=== PATIENT | male | born 1965 | race Caucasian/White ===

== ENCOUNTER 2019-05-12 12:30 | Outpatient (CLI) | payer OTHER, SELFPAY ==
--- NOTE | ~2019-05-12 | MR_ITS ---
EXAMINATION: MR lumbar spine wo con EXAM DATE: 05/12/2019 13:34 INDICATION: Low back pain. TECHNIQUE: Multi-sequential, multiplanar MR images of the lumbar spine were obtained without contrast . Sagittal T1, T2, T2 fat saturation images. Axial T2 weighted images. There is no prior study for comparison. FINDINGS: There is moderate disc disease from T12 through L3, mild to moderate at L3-4 and L5-S1. The re is 3 mm retrolisthesis L2 on L3, 2 mm retrolisthesis L3 on L4 and 2 mm anterolisthesis L5 on S1. T he conus medullaris terminates at the L1/2 level and has normal signal intensity and morphology. The re are no suspicious marrow signal abnormalities. Paraspinal soft tissue is unremarkable. Right renal fluid signal intensity lesion measuring about 3 cm. Level by level evaluation: T12-L1: There is a mild diffuse disc bulge. Facet arthropathy: None. Neural foraminal stenosis: No stenosis. Central canal stenosis: Mild. L1-L2: There is a mild diffuse disc bulge. Facet arthropathy: None. Neural foraminal stenosis: No stenosis. Central canal stenosis: Minimal. L2-L3: There is a moderate diffuse disc bulge. Facet arthropathy: Mild. Neural foraminal stenosis: Mild bilateral. Central canal stenosis: Mild to moderate. Some nerve root crowding. L3-L4: There is a mild to moderate diffuse disc bulge. Facet arthropathy: Mild. Neural foraminal stenosis: Mild bilateral. Central canal stenosis: Mild. L4-L5: There is a mild diffuse disc bulge. Facet arthropathy: Mild. Neural foraminal stenosis: Mild bilateral. Central canal stenosis: Minimal. L5-S1: There is a mild to moderate diffuse disc bulge. Facet arthropathy: Mild. Neural foraminal stenosis: Mild to moderate bilateral. Central canal stenosis: Mild. IMPRESSION: Moderate lumbar disc disease, mild arthropathy as detailed above. Reviewed, dictated and finalized at location A. UCTION SERVICE MANAGER
== END 2019-05-12 12:31 | disposition home or self-care (01) ==
LOC: ANHIMG 12:41
PROVIDERS: Visit Provider Physical Medicine & Rehabilitation Pain Medicine
DX: M51.36 Other intervertebral disc degeneration, lumbar region (principal)
CPT/HCPCS: 72148

== ENCOUNTER 2020-05-18 15:51 | Outpatient (CLI) | payer OTHER, SELFPAY ==
--- NOTE | ~2020-05-18 | MR_ITS ---
EXAMINATION: MR lumbar spine wo con DATE: 05/18/2020 16:37 INDICATION: Chronic low back pain. Gross motor weakness. TECHNIQUE: Magnetic resonance imaging (MRI) of the lumbar spine was performed without intravenous con trast. Sequences included sagittal T2-weighted FSE, sagittal T2-weighted FS FSE, sagittal T1-weighted FSE, and axial T2-weighted FSE. COMPARISON: Lumbar spine MRI 05/12/2019 FINDINGS: There is 3 degrees levocurvature of lumbar spine. There is 3 mm retrolisthesis of L2 on L3. There is mild chronic anterior wedging of T12-L2 vertebral bodies. There are Schmorl's nodes from T1 1-T12 through L2-L3. There is mildly decreased disc height at L1-L2, moderately decreased disc height at L2-L3, and mildly decreased disc height at L3-L4 and L5-S1. The distal spinal cord signal intensi ty is normal. The conus medullaris is at L1. There is a 3.4 cm cyst in right kidney. The following di sc levels are specifically discussed: L1-L2: The disc is bulging. There is no facet joint osteoarthritis. There is mild left neural foramin al stenosis. There is mild central canal stenosis. L2-L3: The disc is bulging and has an annular fissure. There is mild right facet joint osteoarthritis . There is mild bilateral neural foraminal stenosis. There is mild central canal stenosis. L3-L4: The disc is bulging and has an annular fissure. There is mild bilateral facet joint osteoarthr itis. There is mild bilateral neural foraminal stenosis. There is mild central canal stenosis. L4-L5: The disc does not extend beyond the endplate margin. There is mild bilateral facet joint osteo arthritis. There is no neural foraminal stenosis. There is no central canal stenosis. L5-S1: The disc is bulging. There is mild bilateral facet joint osteoarthritis. There is mild bilater al neural foraminal stenosis. There is mild central canal stenosis. IMPRESSION: 1. Moderate lumbar spondylosis, stable from 05/12/2019. Reviewed, dictated and finalized at location A. LFISH MANAGER
== END 2020-05-18 15:52 | disposition home or self-care (01) ==
PROVIDERS: Visit Provider Physical Medicine & Rehabilitation Pain Medicine
DX: M47.815 Spondylosis without myelopathy or radiculopathy, thoracolumbar region (principal); R53.1 Weakness; M51.45 Schmorl's nodes, thoracolumbar region; M48.05 Spinal stenosis, thoracolumbar region
CPT/HCPCS: 72148

== ENCOUNTER → 2020-08-05 04:18 | Outpatient (CLI) | payer OTHER, SELFPAY ==
[2020-08-05 19:36] LABS: SARS-CoV-2 RNA PCR Negative
== END ==
PROVIDERS: Visit Provider Physical Medicine & Rehabilitation Pain Medicine
DX: R68.89 Other general symptoms and signs (principal); Z20.822 Contact with and (suspected) exposure to COVID-19
CPT/HCPCS: C9803; U0003; U0005

== ENCOUNTER 2020-08-08 09:57 | Outpatient (CLI) | payer OTHER, SELFPAY ==
[2020-08-03 16:02] VITALS: BMI 20.5
--- NOTE | ~2020-08-08 | XR_ITS ---
EXAMINATION: XR myelogram spine lumbosacral EXAM DATE: 08/08/2020 11:32 INDICATION: Back pain, radiculopathy. TECHNIQUE: Patient's prior MRI examination from April was reviewed. Informed consent was obtained from the patient for doing intrathecal injection of contrast, myelogram to be performed by Dr. Nithin Jain, radiologist. I discussed benefits and risks including bleeding, infection, backache, headache and seizure. Alternatives also discussed. The DAP for this procedure was 0.35 Gycm2. Pulsed dose red uction fluoroscopy was used with fluoroscopic time of 0.2. A total of 22 images obtained for the exam . Time out procedure was performed. Regulatory And Compliance Technician radiograph was obtained. An entry site was chosen at the L4 -5 level. A right paracentral approach was used. Standard sterile prep was done with ChloraPrep. E ntry site was infiltrated with 3 cc 1% lidocaine. A 3.5 22G spinal needle was then inserted into th e spinal canal. 15 milliliters Omnipaque 180 were then injected into the thecal sac. Frontal, lateral and oblique fluoroscopic images lumbar spine were then acquired. The patient was th en transferred to CT scan for postcontrast imaging. Following this, patient was placed in postopera tive area for 2 hours observation prior to being discharged. There were no immediate complications. FINDINGS: Patient has 12 rib-bearing lumbar vertebral bodies. There is no myelographic block. Disc b ulges noted at L2-3 and L3-4 levels. IMPRESSION: Intrathecal placement of contrast for subsequent CT myelogram. Reviewed, dictated and finalized at location A.
--- NOTE | ~2020-08-08 | CT_ITS ---
EXAMINATION: CT lumbar spine w con EXAM DATE: 08/08/2020 11:29 INDICATION: Radiculopathy . Low back pain. TECHNIQUE: Spiral CT of the lumbar spine was performed with intrathecal injection of 15 mL Omnipaque 180 solution. Axial, coronal and sagittal images lumbar spine were reviewed. The dose-length produc t (DLP) for this examination was 419 mGy-cm. Patient was scanned a 2nd time after review of the 1st s can demonstrated most contrast layering posteriorly. The exposure was tailored according to patient s ize (auto mA exposure control), and iterative reconstruction (ASIR) was used as additional dose reduc tion technique. There is no prior study for comparison. FINDINGS: There is good intrathecal opacification. There is also some subdural contrast at the lumbos acral junction. There is no nerve root clumping. Conus terminates at the L1-2 level. There is 3 mm re trolisthesis L2 on L3, 2 mm retrolisthesis L3 on L4. Vertebral body heights relatively well-maintaine d. Moderate loss of the disc height from T12 through L3 levels, mild to moderate at L3-4 and L5-S1. M ild aortic arterial sclerosis. There are no acute fractures identified. No spondylolysis. Level by level evaluation: T12-L1: There is a minimal diffuse disc bulge. Facet arthropathy: None. Neural foraminal stenosis: No stenosis. Central canal stenosis: No stenosis. L1-L2: There is a mild diffuse disc bulge. Facet arthropathy: None. Neural foraminal stenosis: No stenosis. Central canal stenosis: No stenosis. L2-L3: There is a moderate diffuse disc bulge. Facet arthropathy: Mild. Neural foraminal stenosis: Mild bilateral. Central canal stenosis: Mild to moderate. L3-L4: There is a mild to moderate diffuse disc bulge. Facet arthropathy: Mild. Neural foraminal stenosis: Mild bilateral. Central canal stenosis: Mild. L4-L5: There is a minimal diffuse disc bulge. Facet arthropathy: Mild to moderate. Neural foraminal stenosis: Mild bilateral. Central canal stenosis: No stenosis. L5-S1: There is a mild diffuse disc bulge. Facet arthropathy: Mild to moderate. Neural foraminal stenosis: Mild bilateral. Central canal stenosis: No stenosis. Correlating with prior MRI examination, does not appear to be any significant interval change. IMPRESSION: 1. L2-3 grade 1 retrolisthesis with moderate disc bulge. 2. Less spondylosis other levels unchanged. Reviewed, dictated and finalized at location A.
[2020-08-08 10:27] LABS: Mean Platelet Volume 8.9 fl (7.4-10.4); Platelet Count Result 294 k/mm3 (150-375)
[2020-08-08 10:35] LABS: INR 0.9
[2020-08-08 11:30] VITALS: BP 122/80; PULSE 79; RESP 20; O2SAT 97
[2020-08-08 11:32] VITALS: BP 128/70; PULSE 64; RESP 16; O2SAT 96
[2020-08-08 11:38] VITALS: BP 127/78; PULSE 79; RESP 18; O2SAT 96
[2020-08-08 12:00] VITALS: BP 112/76; PULSE 79; RESP 20
[2020-08-08 13:00] VITALS: BP 114/81; PULSE 76; RESP 20
[2020-08-08 13:20] VITALS: BP 110/80; PULSE 76; RESP 20
== END 2020-08-08 09:58 | disposition home or self-care (01) ==
PROVIDERS: Radiology Diagnostic Radiology; Visit Provider Physical Medicine & Rehabilitation Pain Medicine
DX: M54.16 Radiculopathy, lumbar region (principal); M47.816 Spondylosis without myelopathy or radiculopathy, lumbar region
CPT/HCPCS: 36415; 62304; 72132; 85049; 85610; Q9965

== ENCOUNTER 2020-08-12 08:18 | Emergency (ER) | payer OTHER, SELFPAY ==
--- NOTE | ~2020-08-12 | XR_ITS ---
EXAMINATION: XR injection blood patch w img EXAM DATE: 08/12/2020 11:02 INDICATION: Spinal headache. Myelogram performed on 08/08/2020. TECHNIQUE: Informed consent was obtained from the patient for doing this blood patch. I discussed be nefits and risks including bleeding, infection, backache and headache. Alternatives also discussed. R adiologist Nithin Jain M.D. performed the procedure with date of pulsed dose reduction fluoroscopy, w ith fluoroscopic time of 0.1. The DAP for this procedure was 11.8 Gycm2. A total of 3 images obtain ed for the exam. A timeout procedure was performed. Vascular access nurse Merlene was present to start a new IV under pasquale rile technique. The back was prepped in standard sterile fashion with Betadine. L4-5 entry site was chosen under fluoroscopic guidance and infiltrated with 3 cc 1% lidocaine. The thecal sac was then a ccessed from a right paracentral approach using a 3.5 noncutting epidural needle. This is the same l ocation that the myelogram was performed out. Loss of resistance technique was utilized. Additionally , a lateral projection confirmed expected position of the epidural needle tip. Merlene then withdrew 12 mL of blood from patient's sterile IV site. I injected 10 mL into the epidural space. At no point dur ing this procedure did CSF flow from the needle hub. Patient stated he felt well after the procedure, but that he had not tried standing. There were no im mediate complications. IMPRESSION: Status post fluoroscopic guided blood patch. Reviewed, dictated and finalized at location A.
[2020-08-12 08:22] VITALS: BP 152/83; PULSE 67; RESP 14; TEMP 36.1; O2SAT 98
[2020-08-12] MEDS: SODIUM CHLORIDE 0.9% IV 1,000 ML 500 ML IV CONT (08:53)
[2020-08-12 08:54] LABS: Basophils Absolute Auto 0.1 K/mm3 (0.0-0.1); Eosinophils Absolute Auto 0.1 K/mm3 (0-0.3); Eosinophils Percent Auto 1.8 % (0-4.4); Hematocrit 40.5 % (42.0-52.0); Hemoglobin 13.8 g/dL (14.0-18.0); Immature Granulocyte Absolute 0.01 K/mm3 (0.00-0.031); Immature Granulocyte Percent A 0.2 % (0-0.5); Lymphocytes Absolute Auto 1.91 K/mm3 (0.9-3.2); Lymphocytes Percent Auto 38.7 % (18.3-44.2); Mean Corpuscular HGB Conc 34.1 g/dl (32-36); Mean Corpuscular Hemoglobin 31.6 pg (26-34); Mean Corpuscular Volume 92.7 fl (80-100); Monocytes Absolute Auto 0.7 K/mm3 (0.1-0.6); Monocytes Percent Auto 13.6 % (2.6-8.5); Neutrophils Absolute Auto 2.2 K/mm3 (1.3-6.7); Neutrophils Percent Auto 44.7 % (45.5-73.1); Platelet Count Result 288 k/mm3 (150-375); Red Blood Count 4.37 M/mm3 (4.6-6.20); Red Cell Distribution Width 12.2 % (11.5-14.5); White Blood Count 4.9 K/mm3 (4.5-10.0)
[2020-08-12 09:03] LABS: Anion Gap 7 mmol/L (8-16); Blood Urea Nitrogen 15 mg/dL (9-20); Calcium 9.5 mg/dL (8.4-10.2); Carbon Dioxide 27 mmol/L (22-30); Chloride 106 mmol/L (98-107); Estimated CRCL calculation 78 ml/min; Estimated Glomerular Filt Rate > 60; Glucose 98 mg/dL (75-110); Potassium 4.3 mmol/L (3.4-5.0); Sodium 140 mmol/L (137-145)
[2020-08-12 09:04] LABS: INR 0.9; Prothrombin Time 12.7 Seconds (11.1-14.7)
[2020-08-12 09:50] VITALS: BP 129/79; PULSE 56; RESP 16; O2SAT 95
[2020-08-12 10:50] VITALS: BP 125/80; PULSE 64; RESP 12; O2SAT 97
--- NOTE | 2020-08-12 11:07 | PC.NURSE ---
Pt returned from blood patch procedure. Orders to remain flat for [address] Jain
--- NOTE | 2020-08-12 13:15 | ED.HA ---
HPI - Headache General Chief Complaint: Headache Stated Complaint: migraine Time Seen by Provider: 08/12/20 08:44 Source: patient Mode of arrival: ambulatory Limitations: no limitations History of Present Illness HPI Narrative: 55-year-old with a history of chronic back pain had a myelogram done 4 days ago here with complaints of having headache since last 3 days. Patient states every time he stands up he gets severe headache mostly on the left side. He denies any nausea, vomiting or photophobia. He states that he had no previous history of headaches. MD elicited complaint: headache Pertinent past history: other (Myelogram) Onset (ago): day(s) (4) Onset description: gradually Location: frontal Severity: moderate Quality & Timing: aching Exacerbating factors: sitting/standing Relieving factors: rest Associated symptoms: none Related Data Home Medications Medication Instructions Recorded Confirmed baclofen 5 mg PO HS 06/22/20 08/03/20 gabapentin 300 mg PO DAILY 06/22/20 08/03/20 oxycodone-acetaminophen [Percocet] 1 tablet PO Q6H PRN 06/22/20 08/03/20 Allergies Allergy/AdvReac Type Severity Reaction Status Date / Time No Known Allergies Allergy Mild Verified 06/22/20 09:46 Review of Systems Review of Systems: All systems reviewed & are unremarkable except as noted in HPI and below Constitutional: Constitutional: Reports no additional constitutional complaints Eyes: Eyes: Reports no additional eye complaints ENT: Reports system reviewed and no additional complaints, except as documented Cardiovascular: Cardiovascular: Reports no additional cardiovascular complaints Respiratory: Respiratory: Reports no additional respiratory complaints Gastrointestinal: Gastrointestinal: Reports no additional gastrointestinal complaints Musculoskeletal: Musculoskeletal: Reports no additional musculoskeletal complaints Neurologic: Reports as per HPI Exam Narrative: Exam Narrative: GENERAL: Well-appearing, well-nourished, and in no acute distress. HEAD: Normocephalic, atraumatic. EYES: PERRLA and EOMI. ENT: Nares clear, no rhinorrhea or epistaxis. Mucous membranes moist. NECK: Supple. CHEST: Clear to auscultation. No respiratory distress. HEART: Regular rate and rhythm. No murmur heard. Normal peripheral pulses. ABDOMEN: Soft, nontender, nondistended, normal active bowel sounds. EXTREMITIES: Normal range of motion. No edema. SKIN: Warm, dry, no rash. NEURO: No focal deficits. Alert and oriented x3. PSYCH: Normal mood and affect. Course Course Emergency Course: His symptoms are most suggestive of spinal headache. I did talk to Say he agreed to do blood patch. Patient started feeling much better after the procedure he was observed in the ER for approximately 2 hours he was able to stand and ambulate without headache. Vital Signs Vital signs: Vital Signs Temperature 36.1 C L 08/12/20 08:22 Pulse Rate 67 08/12/20 08:22 Respiratory Rate 14 08/12/20 08:22 Blood Pressure 152/83 H 08/12/20 08:22 Pulse Oximetry 98 08/12/20 08:22 Temperature 36.1 C L 08/12/20 08:22 Pulse Rate 64 08/12/20 10:50 Respiratory Rate 12 08/12/20 10:50 Blood Pressure 125/80 08/12/20 10:50 Pulse Oximetry 97 08/12/20 10:50 MDM - Headache Lab Data Result diagrams: 08/12/20 08:49 08/12/20 08:49 Labs: Lab Results 08/12/20 08/12/20 08/12/20 Range/Units 08:49 08:49 08:49 WBC 4.9 (4.5-10.0) K/mm3 RBC 4.37 L (4.6-6.20) M/mm3 Hgb 13.8 L (14.0-18.0) g/dL Hct 40.5 L (42.0-52.0) % MCV 92.7 (80-100) fl MCH 31.6 (26-34) pg MCHC 34.1 (32-36) g/dl RDW 12.2 (11.5-14.5) % Plt Count 288 (150-375) k/mm3 MPV 9.0 (7.4-10.4) fl Immature Gran % (Auto) 0.2 (0-0.5) % Neut % (Auto) 44.7 L (45.5-73.1) % Lymph % (Auto) 38.7 (18.3-44.2) % [place] % (Auto) 13.6 H (2.6-8.5) % Eos % (Auto) 1.8 (0-4.4) % Baso % (Auto) 1.0
[2020-08-12 13:29] VITALS: BP 153/82; PULSE 64; RESP 18; O2SAT 100
== END 2020-08-12 13:32 | disposition home or self-care (01) ==
PROVIDERS: Emergency Provider Family Medicine
DX: G97.1 Other reaction to spinal and lumbar puncture (principal); R51.0 Headache with orthostatic component, not elsewhere classified; M54.9 Dorsalgia, unspecified; G89.29 Other chronic pain
CPT/HCPCS: 36415; 62273; 77003; 80048; 85025; 85610; 96360; 96361; 99283; J7030